=== PATIENT | male | born 1945 | race Caucasian/White ===

== ENCOUNTER 2024-01-26 23:06 | Inpatient (IN) | payer MEDICARE, SELFPAY ==
[2024-01-26 20:16] LABS: Glucose - Point of Care 117 mg/dl (70-99)
[2024-01-26 20:17] VITALS: BP 118/85; BMI 34.1
[2024-01-26 20:32] LABS: Hematocrit 39.7 % (39.0-52.0); Hemoglobin 12.5 g/dL (13.0-18.0); Mean Corp Hgb Conc. 31.5 g/dL (33.0-37.0); Mean Corpuscular Hgb 31.4 pg (27.0-31.0); Mean Corpuscular Volume 99.7 fL (80.0-94.0); Mean Platelet Volume 9.1 fL (7.4-10.4); Platelet Count 234 10^3/uL (130-400); Red Blood Cell Count 3.98 10^6/uL (4.70-6.10); Red Cell Dist. Width 13.5 % (11.5-14.5); White Blood Cell Count 11.5 10^3/uL (4.8-10.8)
[2024-01-26 20:55] LABS: ALT (SGPT) 41 U/L (0-50); AST (SGOT) 36 U/L (17-59); Albumin 3.8 g/dl (3.5-5.0); Alkaline Phosphatase 92 U/L (38-126); Blood Urea Nitrogen 26 mg/dl (9-20); Calcium 9.4 mg/dl (8.4-10.2); Carbon Dioxide 21 mmol/L (22-30); Chloride 107 mmol/L (98-107); Estimated Creatinine Clearance 58 ml/min; Glucose 124 mg/dl (70-99); Potassium 4.4 mmol/L (3.5-5.1); Sodium 141 mmol/L (135-145); Total Bilirubin 0.4 mg/dl (0.2-1.3); Total Protein 6.6 g/dl (6.3-8.2); eGFR > 60.00
--- NOTE | 2024-01-26 20:58 | ED.GENMED ---
History of Present Illness
General
Chief Complaint: Abnormal Lab Value
Source: patient and ambulance crew
Time Seen by Provider: 01/26/24 20:48
History of Present Illness
History of Present Illness:
78-year-old male with past medical history of CHF, khz-[id number] diabetes, status post AICD placement presenting to the emergency department via EMS after son had contacted EMS after patient was confused, EMS found patient with a glucose of
36. Patient was given 1 ampoule of D10 and brought to the emergency department. Patient had a similar incidence last night where his blood sugar had dropped but refused care and was kept at home. Patient does live at home with his son but son
works as a fork lift truck operator and is often gone for 2 to 3 weeks at a time and during that time patient is on his own. He does report that he checks his blood sugars however he has not had the test strips for at least a few weeks. Patient is without any
specific concerns at this time. He does report that he takes his medications as directed
Past History
Past History
ED Past Medical History: CHF, NIDDM and Other (Cardiomyopathy)
ED Past Surgical History: Cardiac and Orthopedic
Social History
Tobacco: Non-smoker
Alcohol: None
Drug: None
Living: with family
Review of Systems
Review of Systems
All Other Systems: ROS reviewed and negative except as documented in HPI and ROS
Phy Exam
Physical Exam
Physical Exam:
GENERAL: Alert , in no apparent distress, unkempt, obese, malodorous
HEAD: NCAT
EYE: clear conjunctiva
NECK: Supple
ENT: mmm.
CARDIAC: Regular rate and rhythm .
LUNGS: Clear breath sounds bilaterally, no acute respiratory distress, no wheezes/rales/rhonchi
ABDOMEN: Soft, without focal tenderness, no r/g, no cvat, reducible and non-tender umbilical hernia
NEUROLOGICAL: Alert and oriented x 3
SKIN: Warm and dry, skin intact.
MUSCULOSKELETAL: well perfused.
PSYCH: Normal and appropriate interaction.
Scores
Heart Failure Risk
Heart Failure Risk Score: Not Applicable
Heart Score for Chest Pain Patients
STEMI patient?: Not applicable
Withdrawal Assessment of Alcohol
Withdrawal Assessment Completed?: Not applicable
Course
Orders/Labs/Results
Orders:
Orders
01/26/24 20:24
Complete Blood Count/No Diff Stat
01/26/24 20:25
CMP [Comprehensive Metabolic Panel] Stat
01/26/24 20:58
Urinalysis Reflex To Culture Urgent
Date Specimen was Collected: 01/26/24
Time Specimen was Collected: 21:50
01/26/24 22:08
Cortisol, Random Routine
01/26/24 22:23
Admit/Transfer Patient As Directed
Co-Sign Provider:
Level of Care: Inpatient admission
Assign to:: Telemetry
Physician / Group: [email or web address]
Diagnosis: Symtomatic Hypoglycemia with transient metabolic encephalaopthy
Reason for Telemetry: Subacute Heart Failure
Date to Stop Telemetry: 01/28/24
Time to Stop Telemetry: 11:00
Reason for Hospitalization: Symtomatic Hypoglycemia with transient metabolic encephalaopthy
Expected length of stay greater than two midnights?: Yes
ELOS- Estimated Length of Stay in days: 3
I certify the patient meets the requirements for IP care: Yes
01/26/24 22:27
Code Status As Directed
Resuscitation Status: Full Code
01/27/24 06:00
Cortisol, Random IN AM
01/28/24 11:00
DC Protocol for Telemetry ONCE
Abnormal Lab Results
01/26/24 01/26/24 01/26/24
20:15 20:24 20:25
WBC 11.5 H 10^3/uL
(4.8-10.8)
RBC 3.98 L 10^6/uL
(4.70-6.10)
Hgb 12.5 L g/dL
(13.0-18.0)
MCV 99.7 H fL
(80.0-94.0)
MCH 31.4 H pg
(27.0-31.0)
MCHC 31.5 L g/dL
(33.0-37.0)
Carbon Dioxide 21 L mmol/L
(22-30)
BUN 26 H mg/dl
(9-20)
Glucose 124 H mg/dl
(70-99)
POC Glucose 117 H mg/dl
(70-99)
01/26/24 20:24
01/26/24 20:25
Vital Signs
Initial and Last Documented VS:
Initial Vital Signs
Temp Pulse Resp BP Pulse Ox
97.8 F 77 16 118/85 98
01/26/24 20:17 01/26/24 20:17 01/26/24 20:17 01/26/24 20:17 01/26/24 20:17
Last Documented Vital Signs
Temp Pulse Resp BP Pulse Ox
97.8 F 77 20 118/85 98
01/26/24 20:17 01/26/24 20:17 01/26/24 22:00 01/26/24 20:17 01/26/24 20:17
MDM/Problems Addressed
Differential Diagnosis Includes:
failure to thrive, patient without symptoms to suggest acute infection, dehydration
MDM/Problems Addressed:
78-year-old male presenting to the emergency department for evaluation after he was found to be hypoglycemic at home, second time in 2 days. Normally lives with son however son is currently away for his job and is often times away for 2 to 3 weeks
at a time. Patient's fingerstick on arrival here was 117 after EMS had given him dextrose. Patient without any specific concerns. Labs were initiated. Will also add urinalysis on to work. Given patient's age combined with this was the second
time in 2 days he was found to be hypoglycemic and altered as well as currently no one else at home with him I do feel it would be in patient's interest to be admitted and monitored. Will contact patient's son who is the power of workers compensation attorney to
discuss this. Disposition pending.
*Pulse Oximetry
Patient hypoxic: no
*Surveyor Interpretation
Rate: normal
Rhythm: sinus
*Critical Care Note
Total Time (30-74mins, 75-104mins- exclusive of procedures): Not Applicable
Patient Management
Discussion with other providers: Hospitalist
Escalation/DeEscalation of care consider admission/obs:
Hospitalist team accepts for continued evaluation and treatment of intermittent episodes of hypoglycemia with concern for failure to thrive.
ED Attending Note
-
Portions of this chart may have been created with voice recognition software.� Occasional wrong word or��sound alike� substitutions may have occurred due to the inherent limitations of voice recognition software.
Discharge Plan
Departure
Patient Disposition: Admit
Date of Disposition: 01/26/24
Time of Disposition: 21:42
Presentation/result/management discussed w/ accepting MD/DO: Hospitalist
Discharge Problem:
Hypoglycemia
Prescriptions:
No Action
carvedilol [Coreg] 12.5 mg Tablet
12.5 mg PO BID
glipizide 5 mg Tablet Extended Release 24hr
5 mg PO DAILY
aspirin 81 mg Tablet,Chewable
81 mg PO DAILY
furosemide 20 mg Tablet
20 mg PO DAILY
ezetimibe 10 mg Tablet
10 mg PO DAILY
metformin 750 mg Tablet Extended Release 24 Hr
1,500 mg PO QPM
rosuvastatin 40 mg Tablet
40 mg PO DAILY
omega-3 acid ethyl esters 1 gram capsule
2 cap PO BID
Eliquis 5 mg Tablet
5 mg PO BID
dapagliflozin propanediol [Farxiga] 10 mg Tablet
10 mg PO DAILY
Patient Comments:
01/26/24: last filled 04/20/23 for 90 tablets.
Entresto 49-51 mg Tablet
1 tab PO BID
isosorbide mononitrate 30 mg Tablet Extended Release 24 Hr
30 mg PO DAILY
Referrals:
Espinoza Manriquez MD [Family Provider] -
Interventions
Interventions:
*Risk Screen - Suicide Last Done: 01/26/24 20:17
*General Assessment Last Done: 01/26/24 20:17
*Neglect/Abuse Screening Last Done: 01/26/24 20:17
ED- Fall Risk Assessment Last Done: 01/26/24 20:17
Discharge Date and Time
Print Language: VINCENTIAN
--- NOTE | 2024-01-26 22:06 | PHANOTE ---
med rec tech(01/26/24)-Obtained med list from patient, who had it on his phone. Went through the list with him, but unable to confirm all meds through pharmacy records from the past year. No e[facility] records either.
--- NOTE | 2024-01-26 22:18 | HPS.HSE ---
Addendum entered and electronically signed by Raymond Ochoa MD 01/26/24 22:53:
Eval for recurrent hypoglycemia and for acute infective process and silent NC
- UA
- CXR
- TPNI
Original Note:
Family Physician
-
Family Physician: Espinoza Manriquez
Chief Complaint
-
AMS and low BG
History of Present Illness
HPI
78M HX CHF, S/P AICD, T2DM, Cardiomyotomy BiB EMS due to son reports patient is confused.
- BG was 36 on EMS arrival. 1 ampoule of D10 and brought to the emergency department.
- reports hypoglycemic episode & AMS but declined care and kept at home.
- He lives with son but son is fork truck driver often gone for 2- 3weeks and patint is home alone
- He ran pout of test strips for few weeks
Medical History
Past Medical History
Past Medical History: Reports Arrhythmia, CHF, HTN, Hypercholesterolemia and NIDDM
Past Surgical History: Reports Cardiac (AICD ) and Orthopedic
Social History
Tobacco: Non-smoker
Alcohol: None
Drug: None
Living: With Family
Family History
Family History: Not pertinent
Allergies / Home Medications
Allergies reflects when Allergies were last updated in [email or web address].
Home Medications with original date entered in [email or web address]
Allergy/Medication List:
Allergies
Allergy/AdvReac Type Severity Reaction Status Date / Time
No Known Allergies Allergy Unverified 01/26/24 20:26
Home Medications
apixaban 5 mg tablet (Eliquis) 5 mg PO BID 01/26/24
aspirin 81 mg chewable tablet 81 mg PO DAILY 01/26/24
carvedilol 12.5 mg tablet (Coreg) 12.5 mg PO BID 01/26/24
dapagliflozin propanediol 10 mg tablet (Farxiga) 10 mg PO DAILY 01/26/24
ezetimibe 10 mg tablet 10 mg PO DAILY 01/26/24
furosemide 20 mg tablet 20 mg PO DAILY 01/26/24
glipizide 5 mg tablet, extended release 24 hr 5 mg PO DAILY 01/26/24
isosorbide mononitrate 30 mg tablet,extended release 24 hr 30 mg PO DAILY 01/26/24
metformin 750 mg tablet,extended release 24 hr 1,500 mg PO QPM 01/26/24
omega-3 acid ethyl esters 1 gram capsule 2 cap PO BID 01/26/24
rosuvastatin 40 mg tablet 40 mg PO DAILY 01/26/24
sacubitril 49 mg-valsartan 51 mg tablet (Entresto) 1 tab PO BID 01/26/24
Review of Systems
-
Constitutional: Reports No Symptoms
EENT: Reports No Symptoms
Respiratory: Reports No Symptoms
Cardiac: Reports No Symptoms
Abdomen/GI: Reports No Symptoms
: Reports No Symptoms
Musculoskeletal: Reports No Symptoms
Skin: Reports No Symptoms
Neurological: Reports No Symptoms
Endocrine: Reports No Symptoms
Hematologic/Lymphatic: Reports No Symptoms
Psych: Reports Other (confused )
Physical Exam
Vital Signs
Vital Signs
Temp Pulse Resp BP Pulse Ox
97.8 F 77 16 118/85 98
01/26/24 20:17 01/26/24 20:17 01/26/24 20:17 01/26/24 20:17 01/26/24 20:17
Physical Exam
General: No Apparent Distress, Comfortable, Conversant, Obese and Other (unkempt, malodourous )
HEENT: NormoCephalic and Anicteric
Respiratory: Clear
Cardiac: S1/S2 and Regular Rhythm
Breast: Deferred by me
GI: Soft, Non Tender, Non Distended and Normal Bowel Sounds; No Organomegaly
Rectal: Deferred by Provider
Musculoskeletal: No Clubbing, No Cyanosis and No Edema
Skin: No Rash
Neuro: Awake and Nonfocal/grossly intact
Psych: Calm; No Confused
Laboratory Results
-
01/26/24 20:24
01/26/24 20:25
Laboratory Results
Total Bilirubin 0.4 mg/dl (0.2-1.3) 01/26/24 20:25
AST 36 U/L (17-59) 01/26/24 20:25
ALT 41 U/L (0-50) 01/26/24 20:25
Alkaline Phosphatase 92 U/L (38-126) 01/26/24 20:25
Data Reviewed
-
Lab Data: Labs Reviewed by me
Impression/Plan
-
Vital Signs
Temp Pulse Resp BP Pulse Ox
97.8 F 77 20 118/85 98
01/26/24 20:17 01/26/24 20:17 01/26/24 22:00 01/26/24 20:17 01/26/24 20:17
Data
WCC 11.5
Hgb 12.5
CO2 21
Nl KX
BUN 26
Cr 1.2
eGFR > 60
BG 124 POC Glucose 117
Pending UA
NO PRIOR hospitalist admission:
ASSESSMENT & PLAN
Symptomatic Hypoglycemia
Associated transient metabolic encephalopathy: resolved
- Diff etiology: Poor POs, Glipizide overmedication, synergistic effects of Glipizide and farxiga
- low clinical suspicion for primary hypoadrenalism
- Held Metformin
- Held Glipizide
- cont. Farxiga
- Hypoglycemic protocol from ISS low
- Observe BG
HX CHF - suspect chr HFrEF ?
Clinically not in Acute HF
HX AICD
- No prior ECHO record in [facility]
- Obtain records form PCP
- cont Frusemide 20 mg daily, Carvedilol 12,5mg BID, Farxiga
- cont Entresto
Suspect HX ICM
HX NC
Denied Stent
- cont ASA
- cont IMN
HLD
- cont. Rosuvastatin and Ezetimibe
On chr Eliquis for ? PAF
- cont. Eliquis
DVTx Px; chr Eliquis
Full code
IP TLM
[2024-01-26 22:41] LABS: Glucose - Point of Care 26 mg/dl (70-99)
[2024-01-26] MEDS: DEXTROSE 50% SYRINGE 12.5 GRAMS IV (22:44)
[2024-01-26 22:48] LABS: Urine Albumin Trace (Neg - Trace); Urine Bilirubin 1+ (Negative); Urine Character Slightly Cloudy (Clear); Urine Color Yellow; Urine Glucose Negative (Negative); Urine Ketone Trace (Negative); Urine Leukocyte Negative (Negative); Urine Nitrite Negative (Negative); Urine Occult Blood Negative (Negative); Urine Urobilinogen 1+ (Neg - 1+)
[2024-01-26 22:55] VITALS: BP 109/71
[2024-01-26 22:56] VITALS: BP 128/83
[2024-01-26 23:00] VITALS: BP 121/73
[2024-01-26 23:06] LABS: Glucose - Point of Care 126 mg/dl (70-99)
[2024-01-26 23:48] LABS: Cortisol, Random 34.5 ug/dl
--- NOTE | 2024-01-26 23:48 | W.PN.UPDATE ---
Update Note
Progress Note Update
Patient is hypoglycemic with bs down to 26, D10 started with rate 60/hr and patient upgraded to IMU as recommended by admitting physician.
[2024-01-26 23:55] LABS: Glucose - Point of Care 58 mg/dl (70-99)
[2024-01-27] VITALS (12 sets, daily range): BP systolic 98–121; BP diastolic 57–80; BMI 33.5; BMI 33.4
[2024-01-27] MEDS: D10W 1000 IV ×2 (00:02→14:58)
[2024-01-27] MEDS: DEXTROSE 50% SYRINGE 12.5 GRAMS IV ×5 (00:02→06:07)
[2024-01-27 00:52] LABS: Glucose - Point of Care 71 mg/dl (70-99)
[2024-01-27 01:08] LABS: Glucose - Point of Care 107 mg/dl (70-99)
[2024-01-27 02:25] LABS: Glucose - Point of Care 45 mg/dl (70-99)
[2024-01-27 02:46] LABS: Glucose - Point of Care 95 mg/dl (70-99)
[2024-01-27 04:01] LABS: Glucose - Point of Care 57 mg/dl (70-99)
[2024-01-27 04:25] LABS: Glucose - Point of Care 84 mg/dl (70-99)
[2024-01-27 04:59] LABS: Urine Albumin Trace (Neg - Trace); Urine Bilirubin Negative (Negative); Urine Character Clear (Clear); Urine Color Yellow; Urine Glucose Negative (Negative); Urine Ketone Negative (Negative); Urine Leukocyte 2+ (Negative); Urine Nitrite Negative (Negative); Urine Occult Blood Negative (Negative); Urine Specific Gravity 1.015 (<1.030); Urine Urobilinogen Negative (Neg - 1+)
[2024-01-27 04:59] LABS: Hematocrit 38.1 % (39.0-52.0); Hemoglobin 12.1 g/dL (13.0-18.0); Mean Corp Hgb Conc. 31.8 g/dL (33.0-37.0); Mean Corpuscular Volume 97.7 fL (80.0-94.0); Mean Platelet Volume 9.1 fL (7.4-10.4); Platelet Count 217 10^3/uL (130-400); Red Cell Dist. Width 13.4 % (11.5-14.5); White Blood Cell Count 9.4 10^3/uL (4.8-10.8)
[2024-01-27 05:12] LABS: Blood Urea Nitrogen 25 mg/dl (9-20); Calcium 9.3 mg/dl (8.4-10.2); Carbon Dioxide 19 mmol/L (22-30); Chloride 110 mmol/L (98-107); Estimated Creatinine Clearance 62 ml/min; Glucose 58 mg/dl (70-99); HDL Cholesterol 42 mg/dl; LDL Cholesterol, Calculated 98 mg/dl; Potassium 4.7 mmol/L (3.5-5.1); Sodium 140 mmol/L (135-145); Total Cholesterol 151 mg/dl (50-199); Triglyceride 57 mg/dl (10-149); Very Low Density Lipoprotein 11 mg/dl (0-30); eGFR > 60.00
[2024-01-27 05:23] LABS: Troponin I 0.037 ng/ml
[2024-01-27 05:41] LABS: Cortisol, Random 9.3 ug/dl; TSH 2.43 uIU/ml (0.47-4.68)
[2024-01-27 06:04] LABS: Urine Bacteria Few (Negative); Urine Red Blood Cell 0-2 /HPF (0-2); Urine White Cell 80-90 /HPF (0-5)
[2024-01-27 06:14] LABS: Glucose - Point of Care 53 mg/dl (70-99)
--- NOTE | 2024-01-27 06:18 | PTCARENOTE ---
Admitted pt overnight. aaox3, vpaced, remains RA. Pt seems forgetful at times. Sugars are still dropping, being treated with PRN dextrose. Alerted PARTNERSHIP MARKETING MANAGER, pt was already getting d10 60/hr, orders to increase to 70/hr and continue prn dextrose. Pt
remains asymptomatic when sugars drop, talking to son on the phone. Denies pain. WOC consulted for groin & buttocks. BP's stable. Afebrile. Will continue to monitor.
--- NOTE | 2024-01-27 06:22 | PTCARENOTE ---
When admitted pt, pt admitted that he has not taken his eliquis for about a month or so d/t cost. Pt stated he has not gotten it filled. PT stated he has been taking all his other medications as prescribed.
[2024-01-27 06:47] LABS: Glucose - Point of Care 84 mg/dl (70-99)
[2024-01-27 07:36] LABS: Glucose - Point of Care 73 mg/dl (70-99)
--- NOTE | 2024-01-27 07:37 | PTCARENOTE ---
Pt accu check 73, given OJ, awaiting breakfast, D10 running at 60ml/hr. Pt states he feels good. will foloow accu checks carefully
--- NOTE | 2024-01-27 07:41 | PTCARENOTE ---
D1o running at 70ml/hr not 60
[2024-01-27 08:21] LABS: Glycohemoglobin (HgbA1c) 4.7 % (4.0-5.6)
[2024-01-27] MEDS: NOVOLOG FLEXPEN-LOW RESISTANCE SC ×3 (08:29→17:09)
[2024-01-27] MEDS: LASIX 20 MG PO (08:29)
[2024-01-27] MEDS: ENTRESTO 49 MG/51 MG 1 TAB PO ×2 (08:30→21:37)
[2024-01-27] MEDS: ELIQUIS 5 MG PO ×2 (08:31→21:37)
[2024-01-27] MEDS: CRESTOR 40 MG PO (08:31)
[2024-01-27] MEDS: DESENEX/MITRAZOL/ZEASORB 1 APPLIC TOPICAL ×2 (08:31→21:37)
[2024-01-27] MEDS: IMDUR (EXTENDED RELEASE) 30 MG PO (08:31)
[2024-01-27] MEDS: ZETIA 10 MG PO (08:31)
[2024-01-27] MEDS: FARXIGA PO (08:32)
--- NOTE | 2024-01-27 08:51 | PN.DE.MGMTRT ---
Insulin Management
- -
01/27/2024 Diabetes Management Consult
Patient admitted for severe hypoglycemia, 26, confusion. PMH CHF, s/p AICD, type 2 diabetes, cardiomyopathy. Prior to admission was taking Farxiga 10 mg daily, glipizide 5 mg daily 1500 mg metformin @ HS. A1C 4.7%, cr 1.1, eGFR > 60.
Patient is awake alert, able to discuss pre admission regimen and plan for medication moving forward.
Glucose has trended low overnight and has been treated with Dextrose 15 g IV as well as D10 infusing @ 70ml/hr. Glucose 73 @ 7:224am, 79 @ 8:07am, pre lunch 105.
Will not restart glipizide, continue farxiga 10 mg with cardiac history, will hold metformin today and reassess if needed. A1C of 4.7% is much to low for this age patient with comorbidities.
Discussed with patient moving forward he should not resume glipizide or metformin. He states he has 'many' glucose monitors but cannot afford the strips. Encouraged patient to obtain Reli-On glucose monitor from [employer] $17.88 and test strips are
approximately $15. Patient verbalized understanding of medication changes and monitor/strip availability.
Diabetes History
- -
Type of Diabetes: 2
Pre-Admission Diabetes Regimen
01/26/24 01/27/24
20:25 04:32
Creatinine 1.2 1.1
Lab Results
Hemoglobin A1c 4.7 % (4.0-5.6) 01/27/24 04:32
Insulin Pump Settings
IP Diabetes Regimen
01/26/24 01/26/24 01/26/24
20:15 20:25 22:39
Glucose 124 H
POC Glucose 117 H 26 L*
01/26/24 01/26/24 01/27/24
23:03 23:54 00:41
Glucose
POC Glucose 126 H 58 L 71
01/27/24 01/27/24 01/27/24
01:07 02:13 02:35
Glucose
POC Glucose 107 H 45 L* 95
01/27/24 01/27/24 01/27/24
03:49 04:14 04:32
Glucose 58 L
POC Glucose 57 L 84
01/27/24 01/27/24 01/27/24
06:02 06:36 07:24
Glucose
POC Glucose 53 L* 84 73
Patient Education
[2024-01-27 09:10] LABS: Glucose - Point of Care 79 mg/dl (70-99)
[2024-01-27 09:43] LABS: Troponin I 0.038 ng/ml
[2024-01-27] MEDS: FARXIGA 10 MG PO (11:13)
--- NOTE | 2024-01-27 11:21 | PTCARENOTE ---
Pt Had cxr and 2 decho, back in bed accu check done. D10 still running . Pt will call son , whom i spoke to earlier with a brief update. Pt maria victoria area and groin very red Desenex in place
[2024-01-27 11:24] LABS: Glucose - Point of Care 105 mg/dl (70-99)
--- NOTE | 2024-01-27 13:32 | W.PN.HOSP.TC ---
Today's Communication/Plan
-
.
Assessment / Plan
Assessment / Plan
NAD, resting comfortably in bed
Scleral anicteric
Moist mucous membranes
No JVD
CTA bilateral
Normal S1-S2 no murmurs
Soft nontender nondistended bowel sounds active
No peripheral pitting edema
Moves extremities spontaneously
AAOx3
Recurrent hypoglycemia likely secondary to overmedication use. Diabetes consultants consulted. Plan will be to discontinue glipizide and metformin altogether. Check A1c. Continue Farxiga.
Encourage p.o. intake
Use glucometer frequently
Encourage carb controlled diet
Continue dextrose containing fluids once tolerating diet and sugars
If hypoglycemic again check insulin and C-peptide proinsulin and sulfonylurea levels
CHF compensated, no indication for inpatient echo at this time. no prior echoes on record. Continue Lasix beta-grey Farxiga and Entresto
HLD continue statin
Anticipated Discharge: Within 24 hours
Subjective/Interval History
-
Date of Service: January 27, 2024
Seen and examined. No new complaints. No acute overnight events.
States he takes 2 tabs metformin at after breakfast dinner. Glipizide. And Farxiga.
Objective Data
-
Labs:
Laboratory Results
01/27/24
04:32
WBC 9.4
Hgb 12.1 L
Hct 38.1 L
Plt Count 217
Sodium 140
Potassium 4.7
Chloride 110 H
Carbon Dioxide 19 L
BUN 25 H
Creatinine 1.1
Glucose 58 L
Calcium 9.3
Vital Signs:
Vital Signs
Temp Pulse Resp BP Pulse Ox
98 F 87 19 121/80 91
01/27/24 11:33 01/27/24 12:00 01/27/24 12:00 01/27/24 08:29 01/27/24 10:00
I&O
01/26/24 01/27/24 01/28/24
06:59 06:59 06:59
Output Total 300 / 300 975 / 975
Balance -300 / -300 -975 / -975
--- NOTE | 2024-01-27 14:48 | WOUNDNOTE ---
LEFT GROIN/THIGH
--- NOTE | 2024-01-27 14:49 | WOUNDNOTE ---
[facility] RN note: Patient admitted with hypoglycemia
See H&P for complete history.
PMH: Diabetes, CHF
Wound Location and type/assessment: Patient admitted with MASD/fungal appearing skin to buttocks, groin and abdominal folds. No open areas to skin noted. Per patient he lives alone most and admits to having difficulty ambulating to bathroom. He
reports wearing a depends sometimes. Patient demonstrated challenges with using urinal in bed due to body habitus. Heels intact.
Appetite: Good
Pressure redistribution devices in place: Centrella Max Air
Plan: Staff appropriately using antifungal powder to skin folds and buttocks. May also use clear barrier ointment to buttock folds to protect from moisture. Discussed incontinence options with CHRISTOPH Oglesby. Recommended either trying condom cath or
incontinence wrap which were at bedside. This RN placed incontinence wrap at time of assessment. Patient would like to try to continue to use urinal as he is able. Will continue to follow with patient as needed.
Will confirm orders with hospitalist and update nurse. Updated care plan and will follow as needed.
Note to case management of equipment requested for discharge: Patient likely requires assistance at home with hygiene.
[2024-01-27 14:56] LABS: Glucose - Point of Care 129 mg/dl (70-99)
[2024-01-27 17:20] LABS: Glucose - Point of Care 112 mg/dl (70-99)
[2024-01-27 19:26] LABS: Troponin I 0.034 ng/ml
[2024-01-27 22:14] LABS: Glucose - Point of Care 135 mg/dl (70-99)
[2024-01-27 23:48] LABS: Troponin I 0.041 ng/ml
[2024-01-28] VITALS (11 sets, daily range): BP systolic 93–128; BP diastolic 59–80; BMI 32.8
[2024-01-28] MEDS: D10W 1000 IV (04:19)
[2024-01-28 04:32] LABS: Hemoglobin 13.1 g/dL (13.0-18.0); Mean Corp Hgb Conc. 32.8 g/dL (33.0-37.0); Mean Corpuscular Hgb 31.2 pg (27.0-31.0); Mean Corpuscular Volume 95.2 fL (80.0-94.0); Mean Platelet Volume 8.9 fL (7.4-10.4); Platelet Count 242 10^3/uL (130-400); Red Cell Dist. Width 13.2 % (11.5-14.5); White Blood Cell Count 9.2 10^3/uL (4.8-10.8)
[2024-01-28 04:54] LABS: Blood Urea Nitrogen 23 mg/dl (9-20); Carbon Dioxide 21 mmol/L (22-30); Chloride 105 mmol/L (98-107); Estimated Creatinine Clearance 62 ml/min; Glucose 156 mg/dl (70-99); Potassium 4.3 mmol/L (3.5-5.1); Sodium 138 mmol/L (135-145); eGFR > 60.00
[2024-01-28 05:24] LABS: Troponin I 0.043 ng/ml
--- NOTE | 2024-01-28 05:59 | PTCARENOTE ---
Addendum entered by Diamante Paez RN 01/28/24 06:33:
Pt tele alarm 14 run vtach. Pt Asymptomatic saying he ' didn't feel a thing' and goes �oh I had my phone on my chest� and he quick takes it off. Night PROGRAM DIRECTOR/TRAFFIC DIRECTOR made aware, lab mag level added on.
Original Note:
Pt glucose maintaining over night. Pt troponin over night trending slightly up, pt Asymptomatic. Night PROGRAM DIRECTOR/TRAFFIC DIRECTOR made aware, will order another trop.
--- NOTE | 2024-01-28 06:06 | W.PN.UPDATE ---
Update Note
Progress Note Update
-Troponin 0.043 this am previously 0.041, patient denied chest pain or SOB. will trend troponin as no symptoms and will monitor EKG.
[2024-01-28 07:04] LABS: Magnesium 1.9 mg/dl (1.6-2.3)
[2024-01-28 07:24] LABS: Glucose - Point of Care 148 mg/dl (70-99)
--- NOTE | 2024-01-28 08:22 | PN.DE.MGMTRT ---
Insulin Management
- -
01/28/2024 Diabetes Management F/U:
Patient admitted for severe hypoglycemia, 26, confusion. PMH CHF, s/p AICD, type 2 diabetes, cardiomyopathy. Prior to admission was taking Farxiga 10 mg daily, glipizide 5 mg daily 1500 mg metformin @ HS. A1C 4.7%, cr 1.1, eGFR > 60.
01/25 Glucose trended low overnight and was treated with Dextrose 15 g IV as well as D10 infusing @ 70ml/hr.
Patient is awake alert, resting in bed,able to discuss pre admission regimen and plan for medication moving forward.
01/26 Glucose 73 @ 7:224am, 79 @ 8:07am, premeal 73 -129, HS glucose 135, fasting 156 (V) and 148 POC
Of note, no further episodes of Hypoglycemia since stopping ROSENTHAL and Metformin.
Will make no changes to current regimen. Cont Farxiga 10 mg only, given cardiac history. A1C of 4.7% is much to low for his age with comorbidities.
Discussed with patient moving forward he should not resume glipizide or metformin. He states he has 'many' glucose monitors but cannot afford the strips.
Pt encouraged again to obtain Reli-On glucose monitor from [employer] $17.88 and test strips are approximately $15.
Patient verbalized understanding of medication changes and monitor/strip availability.
Diabetes History
- -
Type of Diabetes: 2 requiring insulin
Pre-Admission Diabetes Regimen
01/28/24
04:15
Creatinine 1.1
Lab Results
Hemoglobin A1c 4.7 % (4.0-5.6) 01/27/24 04:32
Insulin Pump Settings
IP Diabetes Regimen
01/27/24 01/27/24 01/27/24
08:59 11:08 14:43
Glucose
POC Glucose 79 105 H 129 H
01/27/24 01/27/24 01/28/24
17:07 22:03 04:15
Glucose 156 H
POC Glucose 112 H 135 H
01/28/24
07:13
Glucose
POC Glucose 148 H
Meal type: Dinner
Meal type: Lunch
Amount consumed: 100%
Amount consumed: 100%
Patient Education
[2024-01-28] MEDS: NOVOLOG FLEXPEN-LOW RESISTANCE SC ×2 (08:46→12:27)
[2024-01-28] MEDS: CRESTOR 40 MG PO (08:55)
[2024-01-28] MEDS: IMDUR (EXTENDED RELEASE) 30 MG PO (08:55)
[2024-01-28] MEDS: FARXIGA 10 MG PO (08:55)
[2024-01-28] MEDS: LASIX 20 MG PO (08:55)
[2024-01-28] MEDS: ENTRESTO 49 MG/51 MG 1 TAB PO ×2 (08:55→20:05)
[2024-01-28] MEDS: ZETIA 10 MG PO (08:55)
[2024-01-28] MEDS: ELIQUIS 5 MG PO ×2 (08:55→20:05)
[2024-01-28] MEDS: DESENEX/MITRAZOL/ZEASORB 1 APPLIC TOPICAL ×2 (08:59→20:05)
--- NOTE | 2024-01-28 09:11 | VATNOTE ---
Infiltrate to left forearm reported by previous shift. Patient states arm feels improved, though swelling and mild ecchymosis remain. Patient noted arm tender to touch; no drainage noted.
[2024-01-28 09:39] LABS: Glucose - Point of Care 219 mg/dl (70-99)
--- NOTE | 2024-01-28 10:04 | CON.CAR ---
Addendum entered and electronically signed by Marty Knott MD 01/28/24 14:40:
I saw and examined the patient.
The [employer] Supervisor's note was reviewed and I agree with the note.
Comment: Briefly, 78-year-old man past medical history of ischemic cardiomyopathy and aortic stenosis, prior cardiac arrest status post ICD, permanent atrial fibrillation on Eliquis who presents after an episode of hypoglycemia and was found to have
mildly elevated troponin for which cardiology is consulted.
Patient is not reporting any chest pain or shortness of breath today
ECG is paced but does not appear overtly ischemic
Low-level troponin elevation noted 0.034�0.041�0.043�0.038
would stop trending troponin
Continue home cardiac meds
He should follow-up with his outpatient principal investigator to discuss if any further ischemic evaluation such as stress testing is warranted
Stable cardiac status, we will sign off
He should follow-up with his primary principal investigator following discharge
Original Note:
Consultation
Consultation Request
Date/Time Consultation Requested: 01/28/2024
Date/Time Consultation Performed: 01/28/2024
Requesting Provider: Dr. Rehan Meadows
Performing Provider: Melody Craven PA-C for Dr. Knott
Reason for Consultation: Abnormal troponin
Medical History
-
History of Present Illness:
Patient is a 78-year-old male with past medical history significant for permanent atrial fibrillation, chronic anticoagulation on Eliquis, coronary artery disease, ventricular tachycardia with history of cardiac arrest status post biventricular ICD,
cardiomyopathy, heart failure with reduced ejection fraction, severe aortic stenosis, hypertension, hyperlipidemia, diabetes who presented to emergency department 01/26/2024 for altered mental status. Blood sugar was noted to be 36 by EMS. Mental
status improved with correction of hypoglycemia. EKG with ventricular paced rhythm. Patient was found to have abnormal troponin although relatively flat. He was also found to have 2 episodes of ventricular tachycardia both lasting approximately
13 beats on the morning of 01/28/2024. At time of this evaluation patient denying chest pain, shortness of breath, dizziness, lightheadedness, edema, orthopnea or PND. He reports he is active around the house doing chores without cardiac
limitations. He reports his weight has been stable and he is actually lost weight over the last year.
Past medical history:
Permanent atrial fibrillation
Chronic anticoagulation on Eliquis
Coronary artery disease with chronic total occlusion of RCA with collaterals
Ischemic cardiomyopathy
Heart failure with reduced ejection fraction
Ventricular tachycardia with cardiac arrest 2010
Biventricular Miranda ICD
Complete heart block, pacemaker dependent
Severe aortic stenosis
Hypertension
Hyperlipidemia
Type 2 diabetes
Past Medical History
Past Medical History: Other (See HPI)
Past Surgical History: Cardiac (Miranda BIVICD ) and Orthopedic (Right knee replacement, left femur abel, left ankle surgery)
Social History
Tobacco: Former Smoker
Alcohol: None
Drug: None
Personal:
Living: With Family (son)
Employment: Retired
Family History
Family History: Reviewed & Not Pertinent
Allergies / Home Medications
Allergy/AdvReac Type Severity Reaction Status Date / Time
No Known Allergies Allergy Unverified 01/26/24 20:26
�Medication �Instructions �Recorded �Confirmed �Type
apixaban 5 mg tablet (Eliquis) 5 mg PO BID Blood Pressure 01/26/24 01/26/24 History
aspirin 81 mg chewable tablet 81 mg PO DAILY Blood Clot 01/26/24 01/26/24 History
Prevention/Tx
carvedilol 12.5 mg tablet (Coreg) 12.5 mg PO BID Blood Pressure 01/26/24 01/26/24 History
dapagliflozin propanediol 10 mg 10 mg PO DAILY Diabetes 01/26/24 01/26/24 History
tablet (Farxiga)
ezetimibe 10 mg tablet 10 mg PO DAILY High Cholesterol 01/26/24 01/26/24 History
furosemide 20 mg tablet 20 mg PO DAILY Fluid 01/26/24 01/26/24 History
Retention/Swelling
glipizide 5 mg tablet, extended 5 mg PO DAILY Diabetes 01/26/24 01/26/24 History
release 24 hr
isosorbide mononitrate 30 mg 30 mg PO DAILY Heart 01/26/24 History
tablet,extended release 24 hr Disease/Condition
metformin 750 mg tablet,extended 1,500 mg PO QPM Diabetes 01/26/24 01/26/24 History
release 24 hr
omega-3 acid ethyl esters 1 gram 2 cap PO BID Supplement 01/26/24 01/26/24 History
capsule
rosuvastatin 40 mg tablet 40 mg PO DAILY High Cholesterol 01/26/24 01/26/24 History
sacubitril 49 mg-valsartan 51 mg 1 tab PO BID Heart Failure 01/26/24 History
tablet (Entresto)
Review of Systems
-
History Source: Patient
All other systems: Negative unless noted
Physical Exam
Vital Signs
Temp Pulse Resp BP Pulse Ox
98.0 F 84 24 128/71 92
01/28/24 07:00 01/28/24 06:10 01/28/24 06:10 01/28/24 06:10 01/28/24 06:10
GEN: No distress, awake, Ox3, lying in bed
HEENT: supple, anicteric, mmm
LUNGS: CTA, no wheezes/rales
CV: Reg, S1/S2, 2/6 syst murmur, no rub or gallop
ABD: soft, BS+, NT/ND
EXT: No edema, clubbing or cyanosis
NEURO: Gross non-focal
SKIN: No rash, warm, dry, pink
Lab Results
01/28/24 04:15
01/28/24 04:15
Troponin I 0.043 ng/ml H* 01/28/24 04:17
Impression / Plan
-
Primary CARE physician: Espinoza Manriquez
Pleat Taper: Dr. Bertrand Sanchez
Impression:
Presented 01/26/2024 with altered mental status
Acute hypoglycemia
Abnormal troponin
Ventricular tachycardia
Permanent atrial fibrillation
Chronic anticoagulation on Eliquis
Coronary artery disease with chronic total occlusion of RCA with collaterals
Ischemic cardiomyopathy
Heart failure with reduced ejection fraction
Ventricular tachycardia with cardiac arrest 2010
VT ablation April 2014 at [facility]
Biventricular Miranda ICD
Complete heart block, pacemaker dependent
Severe aortic stenosis
Hypertension
Hyperlipidemia
Type 2 diabetes
Echo 01/27/2024: EF 30 to 35%. Mild concentric LVH. Inferoseptal, inferolateral and lateral hypokinesis. Moderate MR. Moderate to severe aortic stenosis with peak/mean gradient 23/11 mmHg with CHAIM 1.4 cm�. Mild to moderate TR. PAP 30 to 35 mmHg.
KATELYNN 12/14/2022: EF 45 to 50%. Normal RV size and function. Moderate MR. Moderate to severe aortic stenosis peak/mean gradient 20/8 mmHg with CHAIM 0.79 to 0.9 cm�. Mild AI/TR
Echo 11/04/2022: EF 40-45%. Mild LVH. Moderately dilated left atrium. Mildly dilated right atrium. RV function normal. Severe aortic stenosis with peak/mean gradient 28/14 mmHg with CHAIM 0.72 cm�. Mild AI. Mild to moderate MR, mild TR.
Echo 08/03/2013: EF 33%, diastolic dysfunction with mild left atrial enlargement. Mild MR, TR
Cardiac catheterization April 2014: 100% proximal RCA occlusion with [id number] collaterals. Luminal irregularities in other vessels. Moderate to severe LV dysfunction
Plan:
-Presented 01/26/2024 with altered mental status, have acute hypoglycemia. Altered mental status improved with normalization of glucose.
-Abnormal troponin, initial 0.037 has remained relatively flat with highest recorded 0.043. Would trend to peak. EKG ventricular paced rhythm. Patient denies chest pain or shortness of breath. Suspect nonmyocardial injury secondary to
hypoglycemia.
-Ventricular tachycardia: Patient has longstanding history of ventricular tachycardia/cardiac arrest s/p ICD. Per review of outpatient cardiology records most recent interrogation of ICD was November 2023 which shows appropriate function with 32 high
ventricular rates due to nonsustained ventricular tachycardia the longest lasting 14 seconds with appropriate ATP in 3-month period. Keep K greater than 4, mag greater than 2. Will replete magnesium
-Heart failure with reduced ejection fraction/ischemic cardiomyopathy. Longstanding history of reduced ejection fraction. Has waxed and waned. Patient appears to be euvolemic on examination. Continue GDMT with carvedilol, Entresto, Farxiga,
Lasix.
-Severe aortic stenosis with low gradients which patient's outpatient principal investigator has been following. Given recent reduction in ejection fraction would consider evaluation for TAVR. Patient denies chest pain, shortness of breath or exertional
dizziness. This can be done as outpatient.
-Known coronary artery disease with chronic total occlusion of RCA with [id number] collaterals. Wall motion abnormality on echocardiogram during this admission correlates with these findings. Patient denies chest pain, shortness of breath or
dizziness. Continue aggressive medical management. Consider reevaluation of coronaries if patient wishes to proceed with TAVR. This can be done under discretion of outpatient principal investigator.
HPI 01/28/2024:
Patient is a 78-year-old male with past medical history significant for permanent atrial fibrillation, chronic anticoagulation on Eliquis, coronary artery disease, ventricular tachycardia with history of cardiac arrest status post biventricular ICD,
cardiomyopathy, heart failure with reduced ejection fraction, severe aortic stenosis, hypertension, hyperlipidemia, diabetes who presented to emergency department 01/26/2024 for altered mental status. Blood sugar was noted to be 36 by EMS. Mental
status improved with correction of hypoglycemia. EKG with ventricular paced rhythm. Patient was found to have abnormal troponin although relatively flat. He was also found to have 2 episodes of ventricular tachycardia both lasting approximately
13 beats on the morning of 01/28/2024. At time of this evaluation patient denying chest pain, shortness of breath, dizziness, lightheadedness, edema, orthopnea or PND. He reports he is active around the house doing chores without cardiac
limitations. He reports his weight has been stable and he is actually lost weight over the last year.
Data Reviewed
-
EKG: Report Reviewed by me, Discussed with Physician and Discussed with Patient
Medical Tests (Nuc Med, Echo etc): Report Reviewed by me, Discussed with Physician and Discussed with Patient
Labs: Labs Reviewed by me, Discussed with Physician and Discussed with Patient
Old Records: Reviewed
[2024-01-28 10:47] LABS: Troponin I 0.038 ng/ml
[2024-01-28 11:41] LABS: Glucose - Point of Care 132 mg/dl (70-99)
[2024-01-28] MEDS: MAGNESIUM OXIDE 500 MG PO (12:54)
--- NOTE | 2024-01-28 13:45 | W.PN.HOSP.TC ---
Addendum entered and electronically signed by Rehan Meadows MD 01/28/24 14:48:
nstemi
chronic hfref
Original Note:
Today's Communication/Plan
-
DC dextrose containing fluids
MOnitor bg overnight
If stable DC home
DC home without metformin/glipizide
Outpaitent cardiology follow up for potential TAVR eval per Cardiology
Assessment / Plan
Assessment / Plan
Imaging:
CXR
IMPRESSION:
Mild bibasilar probable atelectasis.
2d echo
CONCLUSIONS
Left ventricle is severely dilated.
Mild concentric left ventricular hypertrophy.
Moderately reduced left ventricular systolic function.
Inferoseptal, inferolateral and lateral hypokinesis.
LV ejection fraction is 30-35% by Camarena's method of discs.
Pacer wire seen in right ventricle.
Pacer wire seen in the right atrium.
Moderate mitral regurgitation.
Mild aortic stenosis.
Peak/mean gradients across the aortic valve are 23/11 mmHg.
Using an LVOT diameter of 2.3 cm, the aortic valve by the Continuity equation
is calculated at 1.4 cm2.
Mild to moderate tricuspid regurgitation.
Estimated pulmonary artery pressure of 30-35 mmHg.
Trace pulmonic regurgitation.
Dilated aortic root, measuring 3.7 cm at the sinuses of valsalva and 2.8 cm at
the sinotubular junction.
The IVC is mildly dilated.
Interatrial septum is intact with no evidence of shunting by color flow
Doppler.
Phsyical Exam:
NAD, resting comfortably in bed
Scleral anicteric
Moist mucous membranes
No JVD
CTA bilateral
Normal S1-S2 RUSB grade 2/6 kendall
Soft nontender nondistended bowel sounds active
No peripheral pitting edema
Moves extremities spontaneously
AAOx3
Assessment and Plan:
Recurrent hypoglycemia likely secondary to overmedication use. Diabetes consultants consulted. Plan will be to discontinue glipizide and metformin altogether. Check A1c. Continue Farxiga.
Encourage p.o. intake
Use glucometer frequently
Encourage carb controlled diet
Stop dextrose containing fluids. Monitor sugar off if stable overnight dc home.
-Indefinitely stop metformin and glipizide.
Nstemi
-2d echo ordered. See above
-Cards consulted rec outpaitnet cardiology follow up
CHF compensated, no indication for inpatient echo at this time. no prior echoes on record. Continue Lasix beta-grey Farxiga and Entresto
HLD continue statin
Anticipated Discharge: Within 24 hours
Subjective/Interval History
-
Date of Service: January 28, 2024
seen and examined. no new complaints. no acyute overniggt events
still on d10 this am. now off
Objective Data
-
Labs:
Laboratory Results
01/28/24
04:15
WBC 9.2
Hgb 13.1
Hct 40.0
Plt Count 242
Sodium 138
Potassium 4.3
Chloride 105
Carbon Dioxide 21 L
BUN 23 H
Creatinine 1.1
Glucose 156 H
Calcium 9.0
Vital Signs:
Vital Signs
Temp Pulse Resp BP Pulse Ox
98.3 F 82 24 110/69 94
01/28/24 12:07 01/28/24 10:03 01/28/24 10:03 01/28/24 10:03 01/28/24 10:08
I&O
01/27/24 01/28/24 01/29/24
06:59 06:59 06:59
Intake Total 960 / 960
Output Total 300 / 300 2100 / 2100 725 / 725
Balance -300 / -300 -1140 / -1140 -725 / -725
--- NOTE | 2024-01-28 14:15 | PN.CDI ---
CDI
- -
CDI:
Physician Documentation Request
Admit Date: 01/26/24 23:06
Dear Doctor Abdiel,
Clinical Indicators:
Patient admitted with confusion and hypoglycemia.
01/27 PN, 'Nstemi'
01/27 Cardiology consult, 'Abnormal troponin, initial 0.037 has remained relatively flat with highest recorded 0.043...EKG ventricular paced rhythm. Patient denies chest pain or shortness of breath. Suspect nonmyocardial injury secondary to
hypoglycemia.'
Troponin trend:
01/27/24 01/27/24 01/27/24
08:58 18:39 22:49
Troponin I 0.038 H* 0.034 0.041 H*
01/28/24 01/28/24
04:17 10:03
Troponin I 0.043 H* 0.038 H*
Due to potentially conflicting documentation, please clarify the etiology of the troponin elevation:
Non ischemic myocardial injury
N STEMI (documentation complete)
Other, please specify
Use of terms such as suspected, likely, concern for, or probable (associated with a specific diagnosis that is being evaluated, monitored, or treated as if it exists) are acceptable and can be coded in the inpatient setting, when documented at the
time of discharge.
Thank you,
Za Jasso RN BSN
CDI Specialist
available via tiger text
Please use your independent medical judgment in providing your response.
--- NOTE | 2024-01-28 14:24 | PN.CDI ---
CDI
- -
CDI:
Physician Documentation Request
Admit Date: 01/26/24 23:06
Dear Doctor Abdiel,
Clinical Indicators:
Patient admitted with confusion and hypoglycemia.
01/26 Echocardiogram, 'LV ejection fraction is 30-35%...'
01/27 PN, 'CHF compensated'
Please provide further specificity regarding the most likely type and acuity of CHF you are evaluating, treating or monitoring.
Chronic HFrEF
Other, please specify
Use of terms such as suspected, likely, concern for, or probable (associated with a specific diagnosis that is being evaluated, monitored, or treated as if it exists) are acceptable and can be coded in the inpatient setting, when documented at the
time of discharge.
Thank you,
Za Jasso RN BSN
CDI Specialist
available via tiger text
Please use your independent medical judgment in providing your response.
--- NOTE | 2024-01-28 15:16 | CM ---
Addendum entered by Chetna Jon RN 01/28/24 16:04:
[facility] VN ph [phone], fax [phone].
Will need VN order.
Plan home tomorrow with [facility], with son.
Addendum entered by Chetna Jon RN 01/28/24 16:01:
IMM completed.
Addendum entered by Chetna Jon RN 01/28/24 15:42:
Seen by wound care nurse.
Original Note:
Patient with Hx AICD/Pacemaker with Dx Recurrent hypoglycemia likely secondary to overmedication use, NSTEMI. Room air. Seen by DM Educator.
Spoke with patient's son Joe;
the patient resides with his son in a 1 story house with 3 [address].
He has been independent in ADLs and ambulation using his SPC when he goes out.
The patient cooks for himself and drives.
The son is away for periods of time as he is a intermodal owner operator truck driver.
Son says he previously purchased Reli-On glucose monitor from [employer] however test strips were not accurate so they stopped using it.
Patient also has a One Step glucose monitor and just need the test strips---> message sent to Miri DM Educator who relays MD needs to order the test strips ---> message sent to Dr Meadows.
DME - RW, S[facility]
VN - prior [place] home health through [facility]
PCP - Espinoza Manriquez
Pharmacy - [facility]
Referral to [facility]; the patient was previously on service with them until approx Dec. They are able to resume service for for ongoing diabetic education/management.
Spoke with patient who agrees to d/c plan probably home tomorrow with [facility]. He was made aware his son will be available tomorrow to take him home.
Plan home tomorrow with [facility].
[2024-01-28 16:52] LABS: Glucose - Point of Care 153 mg/dl (70-99)
[2024-01-28] MEDS: NOVOLOG FLEXPEN-LOW RESISTANCE 1 UNITS SC (17:17)
[2024-01-28 21:45] LABS: Glucose - Point of Care 170 mg/dl (70-99)
[2024-01-29] VITALS (12 sets, daily range): BP systolic 96–120; BP diastolic 64–84; PULSE 78; O2SAT 96; BMI 32.1
[2024-01-29 02:37] LABS: Glucose - Point of Care 109 mg/dl (70-99)
[2024-01-29 04:54] LABS: Hematocrit 40.4 % (39.0-52.0); Hemoglobin 13.5 g/dL (13.0-18.0); Mean Corp Hgb Conc. 33.4 g/dL (33.0-37.0); Mean Corpuscular Hgb 31.5 pg (27.0-31.0); Mean Corpuscular Volume 94.2 fL (80.0-94.0); Mean Platelet Volume 9.3 fL (7.4-10.4); Platelet Count 250 10^3/uL (130-400); Red Blood Cell Count 4.29 10^6/uL (4.70-6.10); Red Cell Dist. Width 13.2 % (11.5-14.5); White Blood Cell Count 9.6 10^3/uL (4.8-10.8)
[2024-01-29 05:22] LABS: Blood Urea Nitrogen 27 mg/dl (9-20); Calcium 8.9 mg/dl (8.4-10.2); Carbon Dioxide 22 mmol/L (22-30); Chloride 106 mmol/L (98-107); Estimated Creatinine Clearance 61 ml/min; Glucose 106 mg/dl (70-99); Potassium 4.6 mmol/L (3.5-5.1); Sodium 139 mmol/L (135-145); eGFR > 60.00
[2024-01-29 07:43] LABS: Glucose - Point of Care 120 mg/dl (70-99)
--- NOTE | 2024-01-29 08:18 | W.PN.HOSP.TC ---
Today's Communication/Plan
-
expect DC today after seen by PT
Assessment / Plan
Assessment / Plan
Imaging:
CXR
IMPRESSION:
Mild bibasilar probable atelectasis.
2d echo
CONCLUSIONS
Left ventricle is severely dilated.
Mild concentric left ventricular hypertrophy.
Moderately reduced left ventricular systolic function.
Inferoseptal, inferolateral and lateral hypokinesis.
LV ejection fraction is 30-35% by Camarena's method of discs.
Pacer wire seen in right ventricle.
Pacer wire seen in the right atrium.
Moderate mitral regurgitation.
Mild aortic stenosis.
Peak/mean gradients across the aortic valve are 23/11 mmHg.
Using an LVOT diameter of 2.3 cm, the aortic valve by the Continuity equation
is calculated at 1.4 cm2.
Mild to moderate tricuspid regurgitation.
Estimated pulmonary artery pressure of 30-35 mmHg.
Trace pulmonic regurgitation.
Dilated aortic root, measuring 3.7 cm at the sinuses of valsalva and 2.8 cm at
the sinotubular junction.
The IVC is mildly dilated.
Interatrial septum is intact with no evidence of shunting by color flow
Doppler.
Phsyical Exam:
NAD, resting comfortably in bed
Scleral anicteric
Moist mucous membranes
No JVD
CTA bilateral
Normal S1-S2 RUSB grade 2/6 kendall
Soft nontender nondistended bowel sounds active
No peripheral pitting edema
Moves extremities spontaneously
AAOx3
Assessment and Plan:
Recurrent hypoglycemia likely secondary to overmedication use. Diabetes consultants consulted. Plan will be to discontinue glipizide and metformin altogether. Check A1c. Continue Farxiga.
Encourage p.o. intake
Use glucometer frequently
Encourage carb controlled diet
Stop dextrose containing fluids.
BGL OK - likely DC home later today after seen by PT
-Indefinitely stop metformin and glipizide.
Nstemi
-2d echo ordered. See above
-Cards consulted rec outpaitnet cardiology follow up
CHF compensated, TTE with EF 30-35%, mild , moderate MR . Continue Lasix beta-grey Farxiga and Entresto
HLD continue statin
Anticipated Discharge: Within 24 hours
Subjective/Interval History
-
Date of Service: January 29, 2024
feeling well
BGL normal
taking farxiga
Objective Data
-
Labs:
Laboratory Results
01/29/24
04:27
WBC 9.6
Hgb 13.5
Hct 40.4
Plt Count 250
Sodium 139
Potassium 4.6
Chloride 106
Carbon Dioxide 22
BUN 27 H
Creatinine 1.1
Glucose 106 H
Calcium 8.9
Vital Signs:
Vital Signs
Temp Pulse Resp BP Pulse Ox
98.1 F 80 19 120/84 95
01/29/24 07:00 01/29/24 06:00 01/29/24 06:00 01/29/24 06:00 01/29/24 06:00
I&O
01/28/24 01/29/24 01/30/24
06:59 06:59 06:59
Intake Total 960 / 960 640 / 640
Output Total 2100 / 2100 1725 / 1725
Balance -1140 / -1140 -1085 / -1085
Review of Systems
-
History Source: Patient
All other systems: Reviewed and negative
Physical Exam
-
General: No Apparent Distress
HEENT: PERRLA
Respiratory: Clear to Auscultation; Negative Wheezes
Cardiac: Regular Rhythm and S1/S2
GI: Soft and Nontender
Musculoskeletal: No Edema
Skin: Warm and Dry; Negative Rash
Neuro: AO x 3
Psych: Calm
Data Reviewed
-
Diagnostic Radiology: Report Reviewed by me
Labs: Labs Reviewed by me
[2024-01-29] MEDS: NOVOLOG FLEXPEN-LOW RESISTANCE SC (08:41)
[2024-01-29] MEDS: LASIX 20 MG PO (09:04)
[2024-01-29] MEDS: CRESTOR 40 MG PO (09:04)
[2024-01-29] MEDS: ELIQUIS 5 MG PO (09:05)
[2024-01-29] MEDS: ZETIA 10 MG PO (09:05)
[2024-01-29] MEDS: FARXIGA 10 MG PO (09:05)
[2024-01-29] MEDS: IMDUR (EXTENDED RELEASE) 30 MG PO (10:08)
[2024-01-29] MEDS: DESENEX/MITRAZOL/ZEASORB 1 APPLIC TOPICAL (10:08)
[2024-01-29] MEDS: ENTRESTO 49 MG/51 MG PO (10:08)
[2024-01-29 11:56] LABS: Glucose - Point of Care 151 mg/dl (70-99)
[2024-01-29] MEDS: NOVOLOG FLEXPEN-LOW RESISTANCE 1 UNITS SC (13:11)
--- NOTE | 2024-01-29 13:56 | PTCARENOTE ---
pt with l arm iv infiltrate, pt states it feels and looks much better, refused heat and elevation, pt resting
--- NOTE | 2024-01-29 15:00 | W.DS.TRANS ---
DC Summary - Folder And Notcher
-
Discharge Instructions:
Discharge Diagnosis/Procedures Hypoglycemia
Diet Diabetic, Carb Controlled
Activity As tolerated
Driving Restrictions As prior to admission
Bathing Restrictions None
Other Services VN,PT
Instructions:
Stand-Alone Forms:
Changes to Home Medications: Yes
Discharge Medications:
DC Medications w/original date entered in [facility]-SIM
apixaban 5 mg tablet (Eliquis) 5 mg PO BID Blood Pressure 01/26/24
aspirin 81 mg chewable tablet 81 mg PO DAILY Blood Clot Prevention/Tx 01/26/24
carvedilol 12.5 mg tablet (Coreg) 12.5 mg PO BID Blood Pressure 01/26/24
dapagliflozin propanediol 10 mg tablet (Farxiga) 10 mg PO DAILY Diabetes 01/26/24
ezetimibe 10 mg tablet 10 mg PO DAILY High Cholesterol 01/26/24
furosemide 20 mg tablet 20 mg PO DAILY Fluid Retention/Swelling 01/26/24
isosorbide mononitrate 30 mg tablet,extended release 24 hr 30 mg PO DAILY Heart Disease/Condition 01/26/24
omega-3 acid ethyl esters 1 gram capsule 2 cap PO BID Supplement 01/26/24
rosuvastatin 40 mg tablet 40 mg PO DAILY High Cholesterol 01/26/24
sacubitril 49 mg-valsartan 51 mg tablet (Entresto) 1 tab PO BID Heart Failure 01/26/24
Home Medication Changes
stop Glpizide and Metformin
Pending Results: No
--- NOTE | 2024-01-29 15:09 | W.DCSUMMARY ---
Discharge Summary
Discharge Data
Date of Admission: 01/26/24
Date of Discharge: 01/29/24
-
Pending Results: No
Hospital Course
Discharging Physician : Dr. Lisbet Oh
Disposition : Home with Home Care
Primary care physician : Dr. Espinoza Manriquez
Principal Discharge diagnosis : Hypoglycemia
Hospital Course :
Mr. Regis Montanez is a 78 yo man with hx CAD, ischemic cardiomyopathy, HLD, prior cardiac arrest s/p ICD, permanent atrial fibrillation on Eliquis found confused with finding BS 36 by EMS s/p D10 brought to the ER. In the ER BGL 100's. He was
admitted to medicine, [employer] SUPER[employer] Metformin and Glipizide held; he was started on D10 after BGL dropped to 20's overnight. A1c found to be 4.7%, he also reported significant recent weight loss. Patient was continued on Farxiga and BGL remained stable. He
is okay to go home with cessation of metformin and Glipizide. HH is arranged.
Time spent on discharge was 32 minutes
Important imaging findings :
CXR
IMPRESSION:
Mild bibasilar probable atelectasis.
Procedure findings :
Discharge Plan
-
Patient Disposition: Home with Home Care
Discharge Diagnosis/Procedures: Hypoglycemia
Diet: Diabetic, Carb Controlled
Activity: As tolerated
Driving Restrictions: As prior to admission
Bathing Restrictions: None
Other Services: VN and PT
Activity Restrictions/Additional Instructions:
Follow up with your Oil Painter at next available appointment to discuss if stress test indicated.
Referrals:
Espinoza Manriquez MD [Family Provider] - in less than 1 week
Additional Discharge Medication Instructions: STOP METFORMIN AND GLIPIZIDE
Recommend obtaining Reli-On glucose monitor from [employer] $17.88 and test strips are approximately $15.
Prescriptions:
Continued
carvedilol [Coreg] 12.5 mg Tablet
12.5 mg PO BID
aspirin 81 mg Tablet,Chewable
81 mg PO DAILY
furosemide 20 mg Tablet
20 mg PO DAILY
ezetimibe 10 mg Tablet
10 mg PO DAILY
rosuvastatin 40 mg Tablet
40 mg PO DAILY
omega-3 acid ethyl esters 1 gram capsule
2 cap PO BID
Eliquis 5 mg Tablet
5 mg PO BID
dapagliflozin propanediol [Farxiga] 10 mg Tablet
10 mg PO DAILY
Patient Comments:
01/26/24: last filled 04/20/23 for 90 tablets.
Entresto 49-51 mg Tablet
1 tab PO BID
isosorbide mononitrate 30 mg Tablet Extended Release 24 Hr
30 mg PO DAILY
Discontinued
glipizide 5 mg Tablet Extended Release 24hr
5 mg PO DAILY
metformin 750 mg Tablet Extended Release 24 Hr
1,500 mg PO QPM
Discharge Orders:
Discharge Patient (As Directed); Ordered 01/29/24
Ordered By: Lisbet Oh
Discharge Date and Time
Print Language: TELUGU
[2024-01-29] MEDS: FLUAD (65 yr+) 2024-2025 FORMULA 0.5 ML IM (16:06)
--- NOTE | 2024-01-29 16:28 | CM ---
CM following re: discharge planning.
Reviewed pt's chart.
Discharge order noted. Pt is aware, IMM reviewed by CM yesterday.
Referral to ariela KHAN noted.
Please fax discharge instructions to Ariela KHAN at fax [phone].
D/c plan: home with Ariela [facility] and family support.
--- NOTE | 2024-01-29 16:54 | PTCARENOTE ---
Pt for d/c home. IV and tele pack removed. D/c instructions and med list reviewed with pt. Transferred off unit via wheelchair for d/c home with family member.
[2024-01-29 23:01] LABS: Insulin, Random 11 uIU/mL
[2024-01-29 23:43] LABS: C-Peptide 8.5 ng/mL (0.5-3.3)
== END 2024-01-29 16:44 | disposition home health service (06) | DRG 280 ==
LOC: IMU 23:06
PROVIDERS: Hospitalist; Nurse Practitioner Family; Physician Assistant Medical; ADMITTING PHYSICIAN Internal Medicine; ATTENDING PHYSICIAN Student in an Organized Health Care Education/Training Program; CONSULT PHYSICIAN Internal Medicine Cardiovascular Disease; EMERGENCY PHYSICIAN Emergency Medicine; FAMILY PHYSICIAN Internal Medicine
DX: I21.4 Non-ST elevation (NSTEMI) myocardial infarction (principal); G93.41 Metabolic encephalopathy; I50.22 Chronic systolic (congestive) heart failure; I48.21 Permanent atrial fibrillation; I47.20 Ventricular tachycardia, unspecified; J98.11 Atelectasis; E11.649 Type 2 diabetes mellitus with hypoglycemia without coma; I11.0 Hypertensive heart disease with heart failure; E78.00 Pure hypercholesterolemia, unspecified; I25.10 Atherosclerotic heart disease of native coronary artery without angina pectoris; I25.5 Ischemic cardiomyopathy; Z79.82 Long term (current) use of aspirin; Z79.01 Long term (current) use of anticoagulants; Z95.810 Presence of automatic (implantable) cardiac defibrillator; Z79.899 Other long term (current) drug therapy
CPT/HCPCS: 71046; 80048; 80053; 80061; 81003; 81015; 82533; 82962; 83036; 83525; 83735; 84443; 84484; 84681; 85027; 87070; 87086; 87147; 87186; 90662; 93005; 93306; 96374; 97116; 97163; 99284; G0008